=== PATIENT | male | born 1970 | race Caucasian/White ===

== ENCOUNTER → 2017-05-04 | Outpatient (CLI) | payer MEDICARE, OTHER ==
--- NOTE | ~2017-05-04 | MR32 ---
[facility] A Service of [facility] & [facility] RADIOLOGY TEXT RESULTS PATIENT: TAD GU [facility] : [birth year] UNIT #: [id number] AGE: [address]: AYAN SHAH MD SEX: M ORDER DR: [id number] [facility] [address] [place], [place] [address] [id number] O MR#: [id number] #: [id number] NAME: TAD GU : 1970 SEX: M STUDY DATE/TIME: 05/04/2017 8:21 UNIT: [facility] ROOM: STUDY DESCRIPTION: MR Cervical Wo Contrast Attending Physician: Ayan Shah M.D. Referring Physician: Ayan Shah M.D. Ordering Physician: Ayan Shah M.D. Primary Care Physician: Ayan Shah M.D. MRI CENTER REPORT This report is preliminary unless electronic signature is present. EXAM Cervical MRI HISTORY Neck surgery in 2002 with repeat surgery 5 years after that. Patient complains of right arm numbness intermittently for the past 30 years. Comparison with an outside cervical CT dated 08/20/2015. TECHNIQUE Multiplanar imaging of the cervical spine was performed with short and long TR. FINDINGS Postoperative changes of anterior fusion are seen from C4-C7. At C2-C3 the canal and foramina are widely patent and unchanged from the previous exam. At C3-C4 there is broad-based posterior disc bulging and osteophyte formation. This contacts the ventral cord and causes moderate canal narrowing. The AP diameter of the spinal canal at C3-4 is between 8 and 9 mm. On the previous MRI focal protrusion was a little worse on the left than on the right at the entrance to the foramen but this is not noted as extensively on the current study. There is still mild asymmetric worsening toward the left side. Foraminal narrowing is mild to moderate bilaterally. Across the fused levels there is no posterior osteophyte formation and the neural foramina are widely patent. At C7-T1 there is mild broad-based posterior disc bulging. Appearance is unchanged from the previous examination and this results in moderate central stenosis. [facility] A Service of [facility] RADIOLOGY TEXT RESULTS PATIENT: TAD GU LOCATION: [facility] : [birth year] UNIT #: [id number] AGE: [address]: AYAN SHAH MD SEX: M ORDER DR: The cervical cord is normal in size. There is a small linear focus of bright T2 signal in the cervical cord toward the right of midline at C6 that was present on the previous examination. This probably reflects some mild cord myelomalacia related to a previous cord compression. There is no evidence of cord compression on the current study. IMPRESSION 1. At C3-4 asymmetric relative left-sided disc and osteophyte noted on the previous examination is again seen but is less prominent. There is broad-based posterior disc and osteophyte with moderately severe central stenosis. The AP diameter of the canal is between 8 and 9 mm not significantly changed. 2. No change in alignment or canal dimensions across the fused segments from C4-C7. 3. Moderate central stenosis C7-T1 is also unchanged from the previous exam. 4. 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 Dictated by... Db Willis M.D. THIS IS AN ELECTRONICALLY VERIFIED REPORT Db Willis M.D. at 05/05/2017 3:04 PM MARTHA/angela TD: 05/05/2017 13:29 JOB #: [id number] MRI CENTER REPORT Page 1 of 1 COPY
--- NOTE | ~2017-05-04 | MR113 ---
[facility] A Service of [facility] & [facility] RADIOLOGY TEXT RESULTS PATIENT: TAD GU LOCATION: [facility] : [birth year] UNIT #: [id number] AGE: [address]: AYAN SHAH MD SEX: M ORDER DR: [id number] [facility] [address] [place], [place] [address] [id number] O MR#: [id number] Acc #: [id number] NAME: TAD GU : 1970 SEX: M STUDY DATE/TIME: 05/04/2017 9:09 UNIT: [facility] ROOM: STUDY DESCRIPTION: MR Lumbar Wo Contrast Attending Physician: Ayan Shah M.D. Referring Physician: Ayan Shah M.D. Ordering Physician: Ayan Shah M.D. Primary Care Physician: Ayan Shah M.D. MRI CENTER REPORT This report is preliminary unless electronic signature is present. EXAM Lumbar MRI COMPARISON Outside study from 08/20/2015 HISTORY Low back pain with bilateral leg pain and numbness right worse than left. Right leg weakness. Chronic back pain for 25 years. TECHNIQUE Multiplanar imaging of lumbar spine was performed with short and long TR. FINDINGS Mild degenerative changes are seen at all lumbar discs with relative sparing of L5-S1 that shows only minimal degenerative change. At the upper 4 lumbar discs there is disc desiccation mild disc space narrowing and mild concentric disc bulging at each level. This results in mild central stenosis. At the L4-5 level there is a more focal lateral disc protrusion within the foramen on the left. This was also noted on the previous scan. Lumbar foramina are mildly narrowed. The most significant foraminal narrowing is on the left at the L4-5 level where there is moderate foraminal narrowing. The conus is normal. There is no evidence of marrow edema and no paraspinous masses are seen. IMPRESSION No change from the previous lumbar MRI of 08/20/2015. Degenerative changes at the upper 4 lumbar discs are generally mild. There is a focal lateral disc protrusion within the foramen at L4-5 on the left. It is unchanged from the previous exam. Dictated by... Db Willis M.D. [facility] A Service of [facility] RADIOLOGY TEXT RESULTS PATIENT: TAD GU [facility] : [birth year] UNIT #: [id number] AGE: [address]: AYAN SHAH MD SEX: M ORDER DR: THIS IS AN ELECTRONICALLY VERIFIED REPORT Db Willis M.D. at 05/06/2017 4:43 PM RLF/boor TD: 05/05/2017 13:39 JOB #: [id number] MRI CENTER REPORT Page 1 of 1 COPY
--- NOTE | ~2017-05-04 | MR176 ---
[facility] A Service of [facility] & [facility] RADIOLOGY TEXT RESULTS PATIENT: TAD GU LOCATION: [facility] : [birth year] UNIT #: [id number] AGE: [address]: AYAN SHAH MD SEX: M ORDER DR: [id number] [facility] [address] [place], [place] [address] [id number] O MR#: [id number] Acc #: [id number] NAME: TAD GU : 1970 SEX: M STUDY DATE/TIME: 05/04/2017 8:47 UNIT: [facility] ROOM: STUDY DESCRIPTION: MR Thoracic Wo Contrast Attending Physician: Ayan Shah M.D. Referring Physician: Ayan Shah M.D. Ordering Physician: Ayan Shah M.D. Primary Care Physician: Ayan Shah M.D. MRI CENTER REPORT This report is preliminary unless electronic signature is present. EXAM MRI of the thoracic spine without contrast dated 05/04/2017 COMPARISON MRI cervical and lumbar spine without contrast dated 05/04/2017. No prior thoracic spine studies. HISTORY Neck surgery in 2002. Mid and low back pain with bilateral leg pain and numbness, right greater than left. Right leg gives out. Chronic low back pain for about 25 years. The patient has numbness in the right arm and has nerve damage. Pain on and off since the patient was in high school. TECHNIQUE Multisequence, multiplanar imaging of the thoracic spine was obtained without contrast. FINDINGS Vertebral body heights and alignment are preserved. Degenerative disk disease is at multiple levels, relatively worse at T5-6 and T6-7 levels. There is right to left central protrusion at these levels with suspicious extruded components, slightly more prominent at T5-6. There is mild displacement of cord posteriorly without direct significant cord impingement. There is borderline size canal without any severe stenosis. Small central protrusions are also noted at T7-8, T8-9 levels. Right subarticular small protrusion at T7-8, is better seen in the sagittal when compared to the axial images. Mild bilateral facet and costovertebral joint changes are noted at multiple levels. IMPRESSION 1. Degenerative disk disease is at multiple levels, relatively worse at T5-6 and T6-7 with central moderate protrusion/small extrusion STS. [facility] A Service of [facility] & [facility] RADIOLOGY TEXT RESULTS PATIENT: TAD GU [facility]: [facility] : [birth year] UNIT #: [id number] AGE: [address]: AYAN SHAH MD SEX: M ORDER DR: with mild mass effect on the adjacent thecal sac. Cord is displaced posteriorly without significant compression or cord signal change. There is left T9-10 mild to moderate neural foraminal narrowing. No significant nerve impingement is clearly identified. 2. Cord is within normal limits. Dictated by... Kalina Wiseman M.D. THIS IS AN ELECTRONICALLY VERIFIED REPORT Kalina Wiseman M.D. at 05/09/2017 4:10 PM CPR/to TD: 05/04/2017 20:54 JOB #: [id number] MRI CENTER REPORT Page 1 of 1 COPY
== END | disposition home or self-care (01) ==
LOC: CMRI 07:53
DX: M54.12 Radiculopathy, cervical region (principal); M51.34 Other intervertebral disc degeneration, thoracic region; M51.24 Other intervertebral disc displacement, thoracic region; M99.82 Other biomechanical lesions of thoracic region; M48.02 Spinal stenosis, cervical region; M25.78 Osteophyte, vertebrae; M47.896 Other spondylosis, lumbar region; M51.26 Other intervertebral disc displacement, lumbar region
CPT/HCPCS: 72141; 72146; 72148